=== PATIENT | female | born 1995 ===

== ENCOUNTER 2021-04-25 00:15 | Emergency (ER) | payer MEDICAID ==
[~2021-04-25] VITALS: Ht 157.5 cm; Wt 102.1 kg
[2021-04-25] MEDS ORDERED: ALPRAZolam 0.25 MG TAB PO ONE (02:00)
[2021-04-25] MEDS ORDERED: PANTOPRAZOLE 40 MG TAB PO ONE (02:00)
[2021-04-25 03:01] VITALS: BP 139/62
== END 2021-04-25 03:15 | disposition home or self-care (01) ==
LOC: ER 00:15
DX: K21.9 Gastro-esophageal reflux disease without esophagitis (principal); F41.9 Anxiety disorder, unspecified; E66.9 Obesity, unspecified; Z68.41 Body mass index [BMI] 40.0-44.9, adult